=== PATIENT | female | born 1990 | race Caucasian/White ===

== ENCOUNTER 2025-02-08 15:33 | Outpatient (REF) | payer OTHER, SELFPAY ==
--- NOTE | 2025-02-08 | EMG_ITS ---
Impression: Normal motor and sensory nerve conduction velocity is in the upper extremities including segmental studies across the thoracic outlet for both median and ulnar nerves. Normal EMG in the right C5-T1 innervated muscles. Please see detailed neurophysiological report MTDD
--- OUTSIDE RECORDS SUMMARY | 2025-02-08 16:34 | XMS_ITS | Clinical Summary ---
Author Organization [facility] Address [address] [place] [address] Phone Care Team Providers Care Assessment Nurse Name Role Phone Physician, No Pcp Primary Care Provider Unavaila ble Social History Tobacco Use Types Packs/Day Years Used Date Smoking Tobacco: Never Assessed Comments Unknown Sex and Gender Information Value Date Recorded Sex Assigned at Not on file Legal Sex Female 8:55 PM EST Gender Identity Not on file Sexual Orientation Not on file Plan of Treatment Health Maintenance Due Date Last Done Comments IPV Vaccines (2 of 3 - Adult catch-up series) 09/01/2009 08/04/2009 Hepatitis B Vaccines (1 of 3 - 19+ 3-dose series) 2009 Cervical Cancer Screening: Pap Smear 11/07/2011 Depression Screening 08/22/2023 HIV Screening 08/22/2023 Hepatitis C Screening 08/22/2023 Social Influencers of Health Screening 08/22/2023 COVID-19 Vaccine (2 - season) 2024 07/05/2022 Influenza Vaccine (#1) 2025 , 05/22/2022, 07/10/2021, Additional history exists DTaP,Tdap,and Td Vaccines (5 - Td or Tdap) 10/10/2031 10/09/2021, 11/18/2019, 04/02/2019, Additional history exists Meningococcal ACWY Vaccine Completed 08/04/2009 Hepatitis A Vaccines Aged Out 03/06/2010 No long er eligible based on patient's age to complete this topic MMR Vaccines Aged Out 11/19/2016, 09/20/2016 No lo nger eligible based on patient's age to complete this topic HIB Vaccines Aged Out No longer eligi ble based on patient's age to complete this topic HPV Vaccines Aged Out No longer eligi ble based on patient's age to complete this topic Meningococcal B Vaccine Aged Out No l onger eligible based on patient's age to complete this topic Pneumococcal Vaccine: Pediatrics (0 to 5 Years) and At-Risk Patients (6 to 49 Years) Aged Out No longer eligible based on patient's age to complete this topic RSV Immunization Patients Under 20 months Aged Out No longer eligible based on patient's age to complete this topic Varicella Vaccines Aged Out No longer eligible based on patient's age to complete this topic Insurance [facility] on file Care Teams Assessment Nurse Relationship Specialty Start Date End Date Physician, No Pcp PCP - General 07/06/24
--- OUTSIDE RECORDS SUMMARY | 2025-02-08 16:34 | XMS_ITS | Data Portability ---
Author Organization [place] [facility] Address [address] [place] [address] Assessment Encounter Date Assessment Date Assessment LastModified by Organization Details LastModified Time 06/10/2023 06/10/2023 I reviewed her history and physical exam and x-rays and MRI is my impression that she has right shoulder biceps tendinitis. She is in a lot of pain. She has not had any prescription anti-inflammatori es or any supervised physical therapy program for quite some time so I do think that we should place her on an anti-inflammatory we will use lodine and most importantly we will get her into a physical therapy program. If her symptoms do not improve then I will have her see my partner to consider right shoulder arthroscopy and possible biceps tenodesis. She requested a note to avoid wearing her vest as it really aggravates her condition so we have given her that note and we will see her back again after the first of the year The patient's history and physical exam are consistent with biceps tendonitis. The nature of this condition was discussed with the patient. The patient understands this may be a result of an overuse injury or perhaps heavy lifting. Treatment options were gone over with the patient. Biceps tendonitis is initally treated conservatively with rest, avoiding aggravating activities, NSAIDS, physical therapy, and gentle stretches. If initial treatment fails, a corticosteroid injection, an ultrasound examination, or a MRI scan may be ordered. If all conservative treatment fails, certain patients may be good candidates for surgery. Not available 06/10/2023 10:40:03 08/04/2023 08/04/2023 08/04/2023 ODELL: Patient has a history of shoulder pain with an MRI demonstrating right bicep tendinitis. She also had evidence of thoracic outlet syndrome identified during her course of physical therapy. Symptoms have notably improved in regards to paresthesias. She still has some occasional shoulder discomfort with specific positions. The pain was not focal to her biceps on today's visit. We reviewed the above. We agreed to continue with physical therapy progressing to home exercise program. There is nothing surgical at this time. We discussed corticosteroid injection if biceps tendinitis redevelops. She will follow-up on an as-needed basis. All questions answered to her satisfaction. 06/10/2023 JK: I reviewed her history and physical exam and x-rays and MRI is my impression that she has right shoulder biceps tendinitis. She is in a lot of pain. She has not had any prescription anti-inflammatori es or any supervised physical therapy program for quite some time so I do think that we should place her on an anti-inflammatory we will use lodine and most importantly we will get her into a physical therapy program. If her symptoms do not improve then I will have her see my partner to consider right shoulder arthroscopy and possible biceps tenodesis. She requested a note to avoid wearing her vest as it really aggravates her condition so we have given her that note and we will see her back again after the first of the year The patient's history and physical exam are consistent with biceps tendonitis. The nature of this condition was discussed with the patient. The patient understands this may be a result of an overuse injury or perhaps heavy lifting. Treatment options were gone over with the patient. Biceps tendonitis is initally treated conservatively with rest, avoiding aggravating activities, NSAIDS, physical therapy, and gentle stretches. If initial treatment fails, a corticosteroid injection, an ultrasound examination, or a MRI scan may be ordered. If all conservative treatment fails, certain patients may be good candidates for surgery. [email or web address] Not available 08/04/2023 12:06:02 03/16/2024 03/16/2024 Patient has chronic shoulder and neck pain. We reviewed her outside images together on the computer. She underwent a course of physical therapy with ongoing discomfort. After reviewing her images under exam, she is not a surgical candidate. I do not think the shoulder is her primary pain generator. After discussion, we agreed to a referral to physiatry for nonsurgical care. Patient was seen and evaluated by Beltran Pastrana PA-C in indirect conjunction with Dr. Berrios. The provider agrees with the history, physical examination, recommended tests/diagnostic imaging, and treatment plan. [email or web address] Not available 03/16/2024 14:07:31 Plan of Treatment Reminders Order Date Submit Date Provider Last Modified By Organization Details Last Modified Time Details Appointments None recorded. Lab None recorded. Referral physical medicine and rehabilitat ion referral - Chronic neck and shoulder pain. Imaging studies with no surgical lesions. [facility] care. 2023 024 SARAY Yarbrough DO, [address], [address], [place], [address], 5 09:30:37 Procedures None recorded. Surgeries None recorded. Imaging XR, shoulder, 2 or more view 2022 023 [email or web address] [facility], [address], [address], [place], [address], 3 11:09:24 Medication Orders None recorded. Patient TargetsNo targets recorded. Patient Instructions Encounter Date Encounter Id Patient Instructions Last Modified By Organization Details Last Modified Time 06/10/2023 [id number] Complete, two or more views of the true AP of the right glenohumeral joint were performed and supraspinatus outlet view were performed and reviewed. No narrowing of the glenohumeral joint space. No narrowing of the acromio-clavicular joint. No subacromial bone spur. No fractures. Findings: No acute fracture or dislocation. No radiographic evidence of any osteoarticular abnormality of the right shoulder Not available 06/10/2023 10:40:17 Reason for Referral Physical Medicine And Rehabi litation Referral for Myofascial pain syndrome of neck Chronic neck and shoulder pain. Imaging studies with no surgical lesions. [facility] nonsurgical care. Referring Physician: Beltran Pastrana, Orthopedic Surgery, Encounter Date: 03/16/2024 Results Created Date Observation Date Name Description Value Unit Range Abnormal Flag Note LastModifiedBy Organization Detail LastModifiedTime 03/17/20 24 imagi ng/di agnos tic resul t No observ ation record ed. [email or web address] Not Available 2023 08:38:39 03/17/20 24 imagi ng/di agnos tic resul t No observ ation record ed. [email or web address] Not Available 2023 08:39:38 Result Notes None recorded. Problems Name Problem SNOMED Code Status Onset Date Resolution Date Notes Provider Name and Address Organization Details Recorded Time Biceps tendinitis 228861541 Active 023 Adan Colunga MD [address], [facility], [address], [place] [facility] 3 10:40:34 Myofascial pain syndrome of neck 408262308 Active 024 BELTRAN PASTRANA PA-C [address], [place], [address], [facility] 4 14:07:47 Problem Notes None recorded. Procedures Surgical History Date Name Laterality Status Provider Name and Address Organization Details Recorded Time tonsillectomy completed [facility]reen [facility] 06/10/2023 10:16:04 Imaging Results None recorded. Procedure Notes None recorded. Medical Equipment None Reported. Allergies Allergen ID Allergen Name Allergen Category Reaction Reaction Severity Criticality Documentation Date Start Date Code Code System Note Provider Name and Address Organization Details Recorded Time 06015 Augmentin medicatio n Not available Not available Not available 06/10/2023 50478 2 RxNorm Ambreen Knight [facility], [facility] 3 10:13:21 Medications Name Sig Start Date Stop Date Status Note LastModified by Organization Details LastModified Time terconazole 0.4 % vaginal cream INSERT 1 APPLICATO RFUL EVERY DAY BY VAGINAL ROUTE AT BEDTIME FOR 7 DAYS 06/10 completed Not Available Not Available Not Available fluconazole 150 mg tablet TAKE 1 TABLET BY MOUTH EVERY 72 HOURS FOR 3 DAYS DIRECTED 06/10 completed Not Available Not Available Not Available etodolac 400 mg tablet TAKE 1 TABLET BY MOUTH TWICE DAILY 03/16 completed Not Available Not Available Not Available naproxen 500 mg tablet 06/10 completed Not Available Not Available Not Available Vitals Date Recorded Body height Provider Name an d Address Organization Details Last Updated DateTime 08/04/2023 167.64 cm Ambreen Knight [facility] 08/04/2023 11:24:57 Date Recorded Body height Provider Name an d Address Organization Details Last Updated DateTime 03/16/2024 167.64 cm María Tavera [facility] 03/16/2024 13:30:40 Date Recorded Body height Body mass index (BMI) Body weight Provider Name and Address Organization Details Last Updated DateTime 06/10/2023 167.64 cm 30.7 kg/m2 21319.55 g Ambreen Knight [facility], P 06/10/2023 10:15:29 Social History None recorded. Functional Status Question Answer Note LastModified by Organizat ion Details LastModified Time Do you use any illicit or recreational drugs? No Information not available 06/10/2023 Do you or have you ever used any other forms of tobacco or nicotine? Yes [email or web address] Information not available 06/10/2023 What is your level of alcohol consumption? Occasional [email or web address] Information not available 06/10/2023 Do you or have you ever used smokeless tobacco? Never used smokeless tobacco Information not available 06/10/2023 Do you or have you ever used e-cigarettes or vape? Current user of electronic cigarettes [email or web address] Information not available 06/10/2023 Mental Status None recorded. Family History Nothing Reported. Medical History Condition Response Coronary Artery Disease N Gout N Hyperthyroidism N MRSA N Blood Transfusion N Emphysema N Depression N COPD N Hypothyroidism N Pacemaker N Vascular Disease N Gastrointestinal Disease N Anxiety Disorder N Autoimmune disease N Arthritis N Cancer N Stroke N High Cholesterol N Neurologic Disorder N Liver Disease N Organ Transplant N Rheumatoid Arthritis N Arrhythmia N Fibromyalgia N Kidney Disease N Allergies/Hayfever N Adverse Reaction to Anesthesia N Thyroid Problems N Anemia N Brain Injury N Heart Attack (ND) N Osteopenia N Diabetes N Bleeding Disorder N Seizures/Epilepsy N AIDS/HIV N Congestive Heart Failure (CHF) N Asthma N Amputation N Reflux/GERD N Sleep Apnea N Hepatitis N Aneurysm N Heart Disease N Pulmonary Embolism N Hypertension N Osteoporosis N Gynecological HistoryNo gynecological history recorded. Obstetrics History GPAL:G 0 P 0 0 0 0 Past Encounters Encounter ID Performer Location Encounter Start Date Encounter Closed Date Diagnosis/Indication Diagnosis SNOMED-CT Code Diagnosis ICD10 Code Diagnosis Note [id number] Adan Colunga MD [address] [address] 06/10/2023 09:53:18 06/10/2023 10:36:55 Pain of right shoulder joint 1169633301 7885802 M25.511 Biceps tendinitis 781751 007 M75.21 [id number] BELTRAN PASTRANA PA-C [address] [address] 08/04/2023 11:15:54 08/04/2023 11:48:38 Biceps tendinitis 512625470 M75.21 [id number] BELTRAN PASTRANA PA-C [address] [address] 03/16/2024 13:16:36 03/16/2024 14:02:29 Myofascial pain syndrome of neck 765186953 M79.18 Health Concerns Section Related Observation LastModified by Organization Detai ls LastModified Time None Recorded Concern Status LastModified by Organization Details LastModified Time None Recorded Advance Directives Directive None Recorded Payers Insurance Date Sequence Insurance Name Policy Number Policy Hough Covered Member ID Hough Member ID Guarantor Name 03/16/2024 1 [facility] () Sunni San [id number] Sunni Guevaran Notes Date Note Type Note Provider Name and Address Organization Details Recorded Time 06/10/2023 text/html Sunni is a very pleasant 32-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 I do not have her old records but she reports that she has been evaluated multiple times by multiple physicians and has had x-rays that were within normal limits. She did have an MRI scan recently that showed some tendinitis. She has had treatment including physical therapy and anti-inflammatories in the past but has not had anything for about 5 years She reports pain in the front of her shoulder it bothers her at night and particularly with activity Adan Colunga MD [address], [place], [address], [place] [facility] 06/10/2023 10:40:46 08/04/2023 text/html Patient was last seen by Dr. Colunga. She has a history of chronic shoulder pain and previous MRI demonstrating biceps tendinitis which was consistent with her previous exam. She reports more crunching in her shoulder with certain positions and difficulty reaching far behind her. During physical therapy, she was told she had symptoms consistent with thoracic outlet. They focused on anterior shoulder stretching and symptoms have notably improved. 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 I do not have her old records but she reports that she has been evaluated multiple times by multiple physicians and has had x-rays that were within normal limits. She did have an MRI scan recently that showed some tendinitis. She has had treatment including physical therapy and anti-inflammatories in the past but has not had anything for about 5 years She reports pain in the front of her shoulder it bothers her at night and particularly with activity BELTRAN PASTRANA PA-C [address], [place], [address], [place] [facility] 08/04/2023 12:11:21 03/16/2024 text/html Patient 33-year- old female who returns today for follow-up of neck and shoulder pain. She was last August 04, 2023 seen she has had chronic shoulder pain for 10 years. She was treated initially for her shoulder with physical therapy with both biceps tendinitis and possible thoracic outlet syndrome. Her symptoms since her last visit had gotten worse and nothing was working. An MRI of the cervical spine and shoulder were obtained through her primary care provider. She was having insurance issues returning back to our practice. MRI was performed February 16, 2024 of both the neck and shoulder. She was referred back to our practice. No significant change since her last visit. Pain is diffuse around her shoulder and into her upper trapezius. BELTRAN PASTRANA PA-C [address], [place], [address], [place] [facility] 03/16/2024 14:09:09 OBGyn Episode No OBEpisode recorded.
--- OUTSIDE RECORDS SUMMARY | 2025-02-08 16:34 | XMS_ITS ---
Author Name [facility] Organization Unknown History of Medication Use Medication Directions Dispensed Refills Start Date End Date Stat us fluconazole 150 mg tablet TAKE 1 TABLET BY MOUTH EVERY 72 HOURS FOR 3 DAYS DIRECTED 06/10/2023 completed Allergies Allergen Reaction Severity Comment Documented Date Source Statu s AUGMENTIN [facility] Problems Problem Status Onset Date Problem Type Date of Resoluti on Source Biceps tendinitis active 2023-06-10 ProblemAct [facility] Myofascial pain syndrome of neck active 2024-03-16 ProblemAct [facility] Encounters Encounter Type Encounter Reason Primary Diagnosis Location Date Ambulatory [facility] [place] 03/16/2024 Ambulatory [facility] [place] 03/16/2024 Ambulatory [facility] [place] 06/16/2023 Ambulatory [facility] [place] 06/10/2023 Ambulatory [facility] [place] 06/09/2023 Ambulatory [facility] [place] 05/30/2023 Ambulatory [facility] [place] 05/30/2023 Ambulatory [facility] [place] 05/30/2023 Ambulatory [facility] [place] 05/30/2023 Ambulatory [facility] [place] 05/30/2023
== END 2025-02-08 15:34 | disposition home or self-care (01) ==
LOC: HO.NEURO 15:33
PROVIDERS: Visit Provider Psychiatry & Neurology Neurology
DX: G54.0 Brachial plexus disorders (principal)
CPT/HCPCS: 95885; 95910

== ENCOUNTER → 2025-02-08 15:45 | Outpatient (BNV) | payer OTHER, SELFPAY | PROVIDERS: Visit Provider Psychiatry & Neurology Neurology | DX: G54.0 Brachial plexus disorders (principal) | CPT/HCPCS: 95886; 95910 ==

== ENCOUNTER 2025-03-08 14:34 | Outpatient (AMB) | payer OTHER, SELFPAY ==
--- NOTE | 2025-03-08 15:00 | A.OFFVIS_ITS ---
Intake Visit Reasons: 2 months Allergies amoxicillin (From Augmentin) Allergy (Unknown, Verified 03/03/25 11:04) Unknown clavulanic acid (From Augmentin) Allergy (Unknown, Verified 03/03/25 11:04) Unknown Medication List - Last Reconciled 03/08/25 by Nanci Dobbins MD HPI Comments Details: No change in right shoulder pain and numbness and tingling. Crunching sound in right shoulder. Pain in the lateral right pectoral area. Shoulder pain has been going on since 2011.? She also gets intermittent numbness and tingling in the right upper extremity.? Sometimes, she wakes up with the entire right upper ext remity being numb.? It can be brought on by moving her arm up over her head.? She recalls no shoulder or neck injuries. She fell off a horse when she was in high school but no other injuries and doesn't recall any neck injuries with that fall.?The tingling and numbness are intermittent, but the pain is fairly consistent, particularly in certain movements.? She has tenderness in the subclavicular area in the right shoulder and pectoral area.? ? She feels that her right upper extremity is weaker which may be related to her pain.? She has been on profile at the [email or web address], not doing any pushups or running for a year and a half.? She wears a vest with plates with a rigid margin that impinges her in the lateral pectoral area.? They weigh about to 12 pounds.? She's had a nerve conduction / EMG study done,?the report of which is not available at this time.? I looked at her MRI of the cervical spine which showed a chronic cervical disc herniation at C5-6 and mild degenerative changes with mild neural foramina? impingement. [facility] Medical History (Updated 03/08/25 @ 15:11 by Nanci Dobbins MD) Thoracic outlet syndrome Cervical disc herniation Brachial plexus disorders Paresthesia of skin Review of Systems Const Details: ?Sleep:? Difficulty getting to sleepdenies.? Difficulty maintaining sleepdenies?.? Urge to move legsdenies.? Teeth grindingdenies.? Shouting or Kicking during sleep denies.? Abnormal behavior during sleepdenies.? Excessive sleepdenies.? Snoring denies.? Daytime sleepinessdenies. ???General/Constitutional:? Change in appetitedenies.? Chillsdenies.? Fatiguedenies.? Feverdenies.? Weight gaindenies.? Weight lossdenies. ???Ophthalmologic:? Blurred visiondenies.? Diminished visual acuitydenies. ???ENT:? Stuffinessdenies.? Decreased hearingdenies.? Dry mouthdenies.? Ear paindenies.? Nosebleeddenies.? Ringing in the earsdenies.? Sinus paindenies.? Sore throat denies.? Swollen glandsdenies. ???Endocrine:? Cold intolerancedenies.? Excessive thirstdenies.? Frequent urinationdenies.? Heat intolerancedenies. ???Respiratory:? Shortness of breathdenies.? Chest paindenies.? Coughdenies. ???Breast:? Breast lumpdenies.? Nipple dischargedenies. ???Cardiovascular:? Chest pain at restdenies.? Chest pain with exertiondenies.? Claudicationdenies .? Dizzinessdenies.? Fluid accumulation in the legsdenies.? Irregular heartbeat denies.? Palpitationsdenies. ???Gastrointestinal:? Abdominal paindenies.? Constipationdenies.? Diarrheadenies.? Difficulty swallowingdenies.? Heartburndenies.? Nauseadenies.? Rectal bleedingdenies. ???Hematology:? Easy bruisingdenies.? Prolonged bleedingdenies. ???Genitourinary:? Frequent urinationdenies.? Urgencydenies.? Incontinencedenies.? Erectile Dysfunctiondenies. ???Musculoskeletal:? Neck paindenies.? Back paindenies.? Muscle achesdenies.? Painful jointsright shoulder pain.? Sciaticadenies.? Weaknessdenies. ???Podiatric:? Difficulty walkingdenies.? Foot numbnessdenies. ???Neurologic:? Difficulty swallowingdenies.? Balance difficultydenies.? Coordinationnormal.? Difficulty speakingdenies.? Dizzinessdenies.? Faintingdenies.? Gait abnormality denies.? Headachedenies.? Loss of strengthdenies.? Loss of use of extremity denies.? Low back paindenies.? Memory lossdenies.? Seizuresdenies.? Ticsdenies.? Tingling/Numbnessdenies.? Transient loss of visiondenies.? Tremordenies. ???Psychiatric:? Anxietydenies.? Auditory/visual hallucinationsdenies.? Delusionsdenies.? Depressed mooddenies.? Stressorsdenies.? Substance abusedenies.? Suicidal thoughtsdenies. Physical Exam Neck Other: General Examination: GENERAL APPEARANCE:??normal,?in no acute distress.?HEAD:??normocephalic,?atraumatic.?EYES:??sclera non- icteric,?conjunctiva clear.?EARS:??auditory canal clear,?tympanic membrane intact, clear.?NOSE:??no lesions.?ORAL CAVITY:??gums normal,?mucosa moist,?no lesions.?THROAT:??clear.?NECK/THYROID:??no cervical lymphadenopathy,?thyroid normal,?neck supple, full range of motion,?no carotid bruit.?SKIN:??no rashes,?no significant birthmarks.?HEART:??S1, S2 normal,?no murmurs.?LUNGS:??clear anteriorly and posteriorly.?CHEST:??no gross rib deformity,?clear to auscultation.?BACK:??normal exam of spine.?EXTREMITIES:??no edema.?PERIPHERAL PULSES:??normal.?PSYCH:??alert, oriented,?cognitive function intact,?cooperative with exam.? Neuro Other: Neurological: Abnormal neurological findings:??Normal strength. Full ROM of C spine. No sensory deficits. Radial pulse diminishes on holding the RUE up with hand turnin g cold.? Tinel's sign in lateral pectoral area just medial to the humeral head, but not at Erb's point.?Mental Status:??alert and oriented X 3,?Normal attention, orientation, memory and affect.?Cranial Nerves:??Pupils are equal, round and reactive to light. Fundoscopy shows normal disc bilaterally. External occular muscles are intact. Visual wilkins are full, no ptosis. Face is symmetrical, no facial weakness or droop. Facial sensations are normal. Tongue protrudes in midline. Palate elevates symmetrically. Shoulder shrugging is normal..?Motor Examination:??Normal muscle tone, bulk and strength,?No atrophy or fasciculations,?No drift of the extended upper extremities,?Deep tendon reflexes are 2+?,?Plantars are flexor?.?Motor Strength:?Proximal Muscles (out of 5):5Di stal Muscles (out of 5):5Neck Flexors (out of 5):5Neck Extensors (out of 5):5 Deltoid (out of 5):5Biceps (out of 5):5Triceps (out of 5):5Serratus Anterior (out of 5):5Wrist Extensors (out of 5):5APB (out of 5):5Finger Spread (out of 5):5Ileopsoas (out of 5):5Quadriceps (out of 5):5Hamstrings (out of 5):5Tibialis Anterior (out of 5):5Peronei (out of 5):5EDB (out of 5):5Gastrocnemius (out of 5):5Straight Leg Raising:??90 degrees.?Sensory Exam:??Normal light touch, temperature, pinprick, vibration and joint-position sensations?,?Rhomberg sign is absent.?Coordination:??no ataxia,?no titubation,?pzgpbh-pj-[id number], jatq-msai-khbg test and rapid alternating movements were normal.?Gait Exam:??Within normal limits.?Cerebellar Signs:??Clgpzl-qj-qefb and djjj-nx-[id number] is normal,?no dysdiadochokinesia?.?Extrapyramidal System:??No tremor, rigidity with normal facial expressions,?No bradykinesia, no bradyphrenia. Normal arm swing and posture. No propulsion or retropulsion.?Speech:??Normal,?no dysphasia or dysarthria..? Mini Mental Status Exam: Level of Consciousness:??Alert.?Orientation:??Knows correct year, month, date, day and season,?Knows correct city, county and state. Knows correct location and floor.?Registration:??Able to register 3 objects.?Attention:??Serial 7's performed accurately.?Recall:??Able to recall 3 out of 3 objects.?La nguage:??Normal spontaneous speech, fluency, repetition,naming, comprehension, reading and writing.?Total Score:??30/30.? Results Reviewed Results Reviewed: 01/14/25 MRI of the chest shows no significant brachial plexus abnormality. No vascular compression is detected. Incidental finding of cervical spondylosis which is known 02/08/25 NCV/EMG: Normal motor and sensory nerve conduction velocity is in the upper extremities including segmental studies across the thoracic outlet for both median and ulnar nerves. Normal EMG in the right C5-T1 innervated muscles. Assessment & Plan Assessment & Plan (1) Brachial plexus disorders: Comment: There appear to be 2 separate issues here. 1. A relatively asymptomatic chronic C5-6 cervical disc herniation with degenerative osteophytes. 2. Impingement of the distal right brachial plexus, probably from the Vest that she wears at work. She may also have a compromised thoracic outlet and reports a family history in her father of surgery in the shoulder area for a narrow opening which was causing the limb to go numb January 2024 MRI C spine and Shoulder MRI were reviewed. C5-6 chronic disc herniation and degen disc changes . Mild right neural foramina on the right . Code(s): G54.0 - Brachial plexus disorders Category: Medical (2) Cervical disc herniation: Code(s): M50.20 - Other cervical disc displacement, unspecified cervical region Category: Medical (3) Shoulder pain, right: Code(s): M25.511 - Pain in right shoulder Category: Medical Plan [place] of NSAID, Orhtopedic referral for shoulder pain evaluation. Negative neuro workup Orders: Referrals Orthopedics Referral M25.511 - Pain in right shoulder Medications: New diclofenac sodium 75 mg PO BID 60 tabs 0RF Coding Level of Care Code Est Pt Level 4 (75191) Diagnoses Brachial plexus disorders G54.0 Cervical disc herniation M50.20 Shoulder pain, right M25.511
--- OUTSIDE RECORDS SUMMARY | 2025-03-08 15:29 | XMS_ITS | Clinical Summary ---
Author Organization [facility] Address [address] [place] [address] Phone Care Team Providers Care Hospital Ward Clerk Name Role Phone Physician, No Pcp Primary [...] 2009 Cervical Cancer Screening: Pap Smear 11/07/2011 HIV Screening 08/22/2023 Hepatitis C Screening 08/22/2023 Social Influencers of Health Screening 08/22/2023 COVID-19 Vaccine (2 - season) 2024 07/05/2022 Depression Screening 07/28/2024 Influenza Vaccine (#1) 2025 , 05/22/2022, 07/10/2021, Additional history exists DTaP,Tdap,and Td Vaccines (5 - Td or Tdap) 10/10/2031 10/09/2021, 11/18/2019, 04/02/2019, Additional history exists Meningococcal ACWY Vaccine Completed 08/04/2009 Hepatitis A Vaccines Completed 03/06/2010, 08/10/19 10 MMR Vaccines Aged Out 11/19/2016, 09/20/2016 No [...] patient's age to complete this topic [place] [address] [place] [id number] on file Care Teams Hospital Ward Clerk Relationship Specialty Start Date End Date Physician, No Pcp PCP - General 07/06/24
== END 2025-03-08 15:15 | disposition home or self-care (01) ==
LOC: HO.HSM 14:35
PROVIDERS: PCP Physical Medicine & Rehabilitation; Referring Provider Physical Medicine & Rehabilitation; Visit Provider Psychiatry & Neurology Neurology
DX: G54.0 Brachial plexus disorders (principal); M25.511 Pain in right shoulder
CPT/HCPCS: 99214

== ENCOUNTER 2025-06-02 08:15 | Outpatient (AMB) | payer OTHER, SELFPAY ==
--- NOTE | 2025-06-02 08:24 | MHC.OFFVIS ---
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 Patient was referred by [facility]. She reported ongoing right shoulder pain as well as numbness and tingling. Complaints of crunching sound in right shoulder. Today patient reports her pain has been present since 2011, stating this is her 3rd attempt to resolve her problem. She has tried and failed 6 months of physical therapy. She was given a cortisone injection on 08/31/2024, however this did not provide her with any relief. Her pain is located at the anterior side of shoulder. Limited ROM. Denies any traumatic injury. 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 She states in 2011 her pain started when she was in the . She did PT at that time which was not helpful. She returned to work in [employer], worse heavy equipment which did put strain on her shoulders and neck. During a training event in 2017 she was handcuffed for approx 30 mins, she had significant discomfort in the shoulder and was sent to PT again without relief. In 2019 she had a child, in 2021 she had another and while holding her child her right shoulder gave out and she almost dropped her child. In 2022 she was seen by her PCP did another round of PT . She was told she has Toracic outlett syndrome. She saw an Ortho provider in regards to said TOS and was told she was not a surgical candidate and to continue conservative treatment. She was seen by a research and evaluation analyst, had an EMG and was told the EMG was negative and referred to our office for ortho eval. She c/o of predominantly right shoulder pain which radiates down the arm to the elbow. C/o occasional numbness down tot he 4th and 5th digits. She has numbness in the RUE with lifting , pushing , pulling or carrying along with instability. She also c.o weakness with lifting. She did have a steroid injection in the right shoulder 08/31/24 from physiatry she states there was some relief for an hour and then her pain became worse. She was also taking NSAIDS. [facility] Medical History (Updated 06/02/25 @ 09:15 by Lexi Tenorio PA-C) Thoracic outlet syndrome Cervical disc herniation Brachial plexus disorders Paresthesia of skin Social History (Updated 06/02/25 @ 08:31 by Antonella Flores [facility]) Tobacco use type: Smokeless Tobacco Current occupation: [employer]- right hand dominant Review of Systems Const All systems reviewed & are unremarkable except as noted in HPI and below Physical Exam Const General: cooperative and no acute distress Orientation/consciousness: patient oriented x3 Resp Effort & Inspection: normal respiratory effort and able to speak in complete sentences Cardio Peripheral pulses: Peripheral pulses 2+ throughout Neuro General: patient oriented x3 Extrem Other: Right shoulder full range of motion in all planes. She has a positive Townsend's and tenderness to palpation over the proximal biceps. She has pain with empty can with use of accessory muscles. Neurovascularly intact. Results Reviewed Results Reviewed: X-rays of the right shoulder obtained in the office today and reviewed by me show no acute or chronic abnormalities. Impression: Normal motor and sensory nerve conduction velocity is in the upper extremities including segmental studies across the thoracic outlet for both median and ulnar nerves. Normal EMG in the right C5-T1 innervated muscles. Assessment & Plan Assessment & Plan (1) Other instability, right shoulder: Code(s): M25.311 - Other instability, right shoulder Category: Medical (2) Rotator cuff tear, right: Code(s): M75.101 - Unspecified rotator cuff tear or rupture of right shoulder, not specified as traumatic Category: Medical Plan I had a lengthy discussion with the patient about her MRI findings on her neck and shoulder along with EMG findings. Given her physical exam I think it is appropriate to order an MRI arthrogram to further assess the structure of the glenohumeral joint given a positive Townsend's and her continued pain and sensation of instability in the right shoulder. I explained the numbness down the right arm extending into the ulnar nerve distribution of the hand is likely related to the findings on her C-spine MRI. I explained to the patient these are 2 separate issues and while we can address the shoulder she may need a referral to our neuro spine department in the near future. The patient does except and is content with this plan and I will see her back once the MRI is complete. Orders: Orders XR shoulder RT min 2V Today M25.511 - Pain in right shoulder MR shoulder RT w con Today M25.311 - Other instability, right shoulder, M75.101 - Unspecified rotator cuff tear or rupture of right shoulder, not specified as traumatic [place] arthrogram shoulder RT Today M19.011 - Primary osteoarthritis, right shoulder Coding Level of Care Code New Pt Level 4 (98772) Complex EM visit Add On G2211 Diagnoses Other instability, right shoulder M25.311 Rotator cuff tear, right M75.101
== END 2025-06-02 09:11 | disposition home or self-care (01) ==
LOC: HO.HOS 08:15
PROVIDERS: PCP Physical Medicine & Rehabilitation; Visit Provider Physician Assistant
DX: M25.311 Other instability, right shoulder (principal); M75.101 Unspecified rotator cuff tear or rupture of right shoulder, not specified as traumatic
CPT/HCPCS: 99204; G2211

== ENCOUNTER → 2025-06-02 08:17 | Outpatient (BNV) | payer OTHER, SELFPAY | PROVIDERS: Visit Provider Radiology Diagnostic Radiology | DX: M25.511 Pain in right shoulder (principal) | CPT/HCPCS: 73030 ==

== ENCOUNTER 2025-06-02 08:44 | Outpatient (REF) | payer OTHER, SELFPAY ==
--- NOTE | ~2025-06-02 | XR_ITS ---
EXAMINATION: XR SHOULDER 2 OR MORE VIEWS RIGHT HISTORY: M25.511 - Pain in right shoulder COMPARISON: There are no prior studies available for comparison. FINDINGS: Three views of the right shoulder are submitted. Osseous mineralization is normal. There is no fracture or dislocation. The glenohumeral and acromioclavicular joint spaces are preserved. The soft tissues are unremarkable. XR/XR shoulder RT min 2V IMPRESSION: Unremarkable examination of the right shoulder. Electronically signed by: David Mseser MD 06/02/2025 08:27 AM MANUELA PALMER
== END 2025-06-02 08:45 | disposition home or self-care (01) ==
LOC: HO.HOSX 08:44
PROVIDERS: Visit Provider Physician Assistant
DX: M75.101 Unspecified rotator cuff tear or rupture of right shoulder, not specified as traumatic (principal); M25.311 Other instability, right shoulder
CPT/HCPCS: 73030; 99202

== ENCOUNTER → 2025-06-14 14:24 | Outpatient (AMB) | payer OTHER, SELFPAY ==
--- NOTE | 2025-06-14 14:43 | MHC.OFFVIS ---
Intake Visit Reasons: 3m Allergies amoxicillin (From Augmentin) Allergy (Unknown, Verified 06/02/25 08:27) Unknown clavulanic acid (From Augmentin) Allergy (Unknown, Verified 06/02/25 08:27) Unknown HPI Comments Details: No change in right shoulder pain and numbness and tingling. Has to wear her vest all day at work and it bothers her to move her shoulder around it. Undergoing orhtopedic w/u and shoulder MRI is pending. Crunching sound in right shoulder. Pain in the lateral right pectoral area. Shoulder pain has been going on since 2012.? She also gets intermittent numbness and tingling in the right upper extremity.? Sometimes, she wakes up with the entire right upper extremity being numb.? It can be brought on by moving her arm up over her head.? She recalls no shoulder or neck injuries. She fell off a horse when she was in high school but no other injuries and doesn't recall any neck injuries with that fall.?The tingling and numbness are intermittent, but the pain is fairly consistent, particularly in certain movements.? She has tenderness in the subclavicular area in the right shoulder and pectoral area.? ? She feels that her right upper extremity is weaker which may be related to her pain.? She has been on profile at the [employer], not doing any pushups or running for a year and a half.? She wears a vest with plates with a rigid margin that impinges her in the lateral pectoral area.? They weigh about to 12 pounds.? She's had a nerve conduction / EMG study done,?the report of which is not available at this time.? I looked at her MRI of the cervical spine which showed a chronic cervical disc herniation at C5-6 and mild degenerative changes with mild neural foramina? impingement. [facility] Medical History (Updated 06/02/25 @ 09:15 by Lexi Tenorio PA-C) Thoracic outlet syndrome Cervical disc herniation Brachial plexus disorders Paresthesia of skin Social History (Updated 06/02/25 @ 08:31 by NELSON Hsu) Tobacco use type: Smokeless Tobacco Current occupation: [employer]- right hand dominant Review of Systems Const Details: ?Sleep:? Difficulty getting to sleepdenies.? Difficulty maintaining sleepdenies?.? Urge to move legsdenies.? Teeth grindingdenies.? Shouting or Kicking during sleepdenies.? Abnormal behavior during sleepdenies.? Excessive sleepdenies.? Snoringdenies.? Daytime sleepinessdenies. ???General/Constitutional:? Change in appetitedenies.? Chillsdenies.? Fatiguedenies.? Feverdenies.? Weight gaindenies.? Weight lossdenies. ???Ophthalmologic:? Blurred visiondenies.? Diminished visual acuitydenies. ???ENT:? Stuffinessdenies.? Decreased hearingdenies.? Dry mouthdenies.? Ear paindenies.? Nosebleeddenies.? Ringing in the earsdenies.? Sinus paindenies.? Sore throatdenies.? Swollen glandsdenies. ???Endocrine:? Cold intolerancedenies.? Excessive thirstdenies.? Frequent urinationdenies.? Heat intolerancedenies. ???Respiratory:? Shortness of breathdenies.? Chest paindenies.? Coughdenies. ???Breast:? Breast lumpdenies.? Nipple dischargedenies. ???Cardiovascular:? Chest pain at restdenies.? Chest pain with exertiondenies.? Claudicationdenies.? Dizzinessdenies.? Fluid accumulation in the legsdenies.? Irregular heartbeatdenies.? Palpitationsdenies. ???Gastrointestinal:? Abdominal paindenies.? Constipationdenies.? Diarrheadenies.? Difficulty swallowingdenies.? Heartburndenies.? Nauseadenies.? Rectal bleedingdenies. ???Hematology:? Easy bruisingdenies.? Prolonged bleedingdenies. ???Genitourinary:? Frequent urinationdenies.? Urgencydenies.? Incontinencedenies.? Erectile Dysfunctiondenies. ???Musculoskeletal:? Neck paindenies.? Back paindenies.? Muscle achesdenies.? Painful jointsright shoulder pain.? Sciaticadenies.? Weaknessdenies. ???Podiatric:? Difficulty walkingdenies.? Foot numbnessdenies. ???Neurologic:? Difficulty swallowingdenies.? Balance difficultydenies.? Coordinationnormal.? Difficulty speakingdenies.? Dizzinessdenies.? Faintingdenies.? Gait abnormalitydenies.? Headachedenies.? Loss of strengthdenies.? Loss of use of extremitydenies.? Low back paindenies.? Memory lossdenies.? Seizuresdenies.? Ticsdenies.? Tingling/Numbnessdenies.? Transient loss of visiondenies.? Tremordenies. ???Psychiatric:? Anxietydenies.? Auditory/visual hallucinationsdenies.? Delusionsdenies.? Depressed mooddenies.? Stressorsdenies.? Substance abusedenies.? Suicidal thoughtsdenies. Physical Exam Neck Other: General Examination: GENERAL APPEARANCE:??normal,?in no acute distress.?HEAD:??normocephalic,?atraumatic.?EYES:??sclera non-icteric,?conjunctiva clear.?EARS:??auditory canal clear,?tympanic membrane intact, clear.?NOSE:??no lesions.?ORAL CAVITY:??gums normal,?mucosa moist,?no lesions.?THROAT:??clear.?NECK/THYROID:??no cervical lymphadenopathy,?thyroid normal,?neck supple, full range of motion,?no carotid bruit.?SKIN:??no rashes,?no significant birthmarks.?HEART:??S1, S2 normal,?no murmurs.?LUNGS:??clear anteriorly and posteriorly.?CHEST:??no gross rib deformity,?clear to auscultation.?BACK:??normal exam of spine.?EXTREMITIES:??no edema.?PERIPHERAL PULSES:??normal.?PSYCH:??alert, oriented,?cognitive function intact,?cooperative with exam.? Neuro Other: Neurological: Abnormal neurological findings:??Normal strength. Full ROM of C spine. No sensory deficits. Radial pulse diminishes on holding the RUE up with hand turning cold.? Tinel's sign in lateral pectoral area just medial to the humeral head, but not at Erb's point.?Mental Status:??alert and oriented X 3,?Normal attention, orientation, memory and affect.?Cranial Nerves:??Pupils are equal, round and reactive to light. Fundoscopy shows normal disc bilaterally. External occular muscles are intact. Visual wilkins are full, no ptosis. Face is symmetrical, no facial weakness or droop. Facial sensations are normal. Tongue protrudes in midline. Palate elevates symmetrically. Shoulder shrugging is normal..?Motor Examination:??Normal muscle tone, bulk and strength,?No atrophy or fasciculations,?No drift of the extended upper extremities,?Deep tendon reflexes are 2+?,?Plantars are flexor?.?Motor Strength:?Proximal Muscles (out of 5):5Distal Muscles (out of 5):5Neck Flexors (out of 5):5Neck Extensors (out of 5):5Deltoid (out of 5):5Biceps (out of 5):5Triceps (out of 5):5Serratus Anterior (out of 5):5Wrist Extensors (out of 5):5APB (out of 5):5Finger Spread (out of 5):5Ileopsoas (out of 5):5Quadriceps (out of 5):5Hamstrings (out of 5):5Tibialis Anterior (out of 5):5Peronei (out of 5):5EDB (out of 5):5Gastrocnemius (out of 5):5Straight Leg Raising:??90 degrees.?Sensory Exam:??Normal light touch, temperature, pinprick, vibration and joint-position sensations?,?Rhomberg sign is absent.?Coordination:??no ataxia,?no titubation,?adkrrt-[id number]-[id number], qhcq-[id number]-qzyk test and rapid alternating movements were normal.?Gait Exam:??Within normal limits.?Cerebellar Signs:??Enmhya-vl-gzsb and mhlr-dm-spvm is normal,?no dysdiadochokinesia?.?Extrapyramidal System:??No tremor, rigidity with normal facial expressions,?No bradykinesia, no bradyphrenia. Normal arm swing and posture. No propulsion or retropulsion.?Speech:??Normal,?no dysphasia or dysarthria..? Mini Mental Status Exam: Level of Consciousness:??Alert.?Orientation:??Knows correct year, month, date, day and season,?Knows correct city, county and state. Knows correct location and floor.?Registration:??Able to register 3 objects.?Attention:??Serial 7's performed accurately.?Recall:??Able to recall 3 out of 3 objects.?Language:??Normal spontaneous speech, fluency, repetition,naming, comprehension, reading and writing.?Total Score:??30/30.? Assessment & Plan Assessment & Plan (1) Brachial plexus disorders: Comment: There appear to be 2 separate issues here. 1. A relatively asymptomatic chronic C5-6 cervical disc herniation with degenerative osteophytes. 2. Impingement of the distal right brachial plexus, probably from the Vest that she wears at work. She may also have a compromised thoracic outlet and reports a family history in her father of surgery in the shoulder area for a narrow opening which was causing the limb to go numb January 2024 MRI C spine and Shoulder MRI were reviewed. C5-6 chronic disc herniation and degen disc changes . Mild right neural foramina on the right . Code(s): G54.0 - Brachial plexus disorders Category: Medical (2) Cervical disc herniation: Code(s): M50.20 - Other cervical disc displacement, unspecified cervical region Category: Medical (3) Shoulder pain, right: Code(s): M25.511 - Pain in right shoulder Category: Medical Plan Undergoing shoulder joint w/u . MRI shoulder pending Coding Level of Care Code Est Pt Level 4 (57767) Diagnoses Brachial plexus disorders G54.0 Cervical disc herniation M50.20 Shoulder pain, right M25.511
--- OUTSIDE RECORDS SUMMARY | 2025-06-15 11:22 | XMS_ITS | Clinical Summary ---
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 Name Role Phone Physician, No Pcp Primary [...] 2009 Cervical Cancer Screening: Pap Smear 11/07/2011 HPV Vaccines (1 - 3-dose SCDM series) 2017 HIV Screening 08/22/2023 Hepatitis C Screening 08/22/2023 Social Influencers of Health Screening 08/22/2023 Depression Screening 07/28/2024 COVID-19 Vaccine (2 - season) 2025 07/05/2022 Influenza Vaccine (#1) 2025 , 05/22/2022, 07/10/2021, Additional history exists DTaP,Tdap,and Td Vaccines (5 - Td or Tdap) 10/10/2031 10/09/2021, 11/18/2019, 04/02/2019, Additional history exists RSV Immunization Adult Patients (1 - 1-dose 75+ series) 2065 Meningococcal ACWY Vaccine Completed 08/04/2009 Hepatitis A [...] patient's age to complete this topic Insurance [facility] Care Teams Embroidery Worker Relationship Specialty Start Date End Date Physician, No Pcp PCP - General 07/06/24
== END ==
LOC: HO.HSM 14:24
PROVIDERS: Visit Provider Psychiatry & Neurology Neurology
DX: M50.20 Other cervical disc displacement, unspecified cervical region (principal); M25.511 Pain in right shoulder
CPT/HCPCS: 99214

== ENCOUNTER → 2025-06-14 14:24 | Outpatient (BNVA) | payer OTHER, SELFPAY | PROVIDERS: Visit Provider Psychiatry & Neurology Neurology | DX: M25.511 Pain in right shoulder (principal); G54.0 Brachial plexus disorders | CPT/HCPCS: 99212 ==